=== PATIENT | male | born 1940 | race Caucasian/White ===

== ENCOUNTER 2025-05-10 22:24 | Inpatient (IN) | payer OTHER ==
[2025-05-10] MEDS ORDERED: dilTIAZem 25 MG/5 ML VIAL ONE (23:00)
[2025-05-10] MEDS ORDERED: Digoxin 0.5 MG/2 ML AMP ONE (23:00)
[2025-05-10 23:18] LABS: #Basophils 0.05 10x3/uL (0.0-0.2); #Eosinophils 0.08 10x3/uL (0.0-0.5); #Monocytes 1.34 10x3/uL (0.0-1.1); #Neutrophils 9.75 10x3/uL (1.5-8.4); %Basophils 0.4 % (0.0-2.0); %Eosinophils 0.6 % (0.0-6.0); %Lymphocytes 12.4 % (18.0-47.0); %Monocytes 10.3 % (0.0-10.0); %Neutrophils 75.3 % (40.0-75.0); Hematocrit 30.9 % (38.8-50.0); Hemoglobin 10.5 g/dL (13.5-17.5); Mean Corpuscular Hemoglobin 31.1 pg (27.0-33.0); Mean Corpuscular Volume 91.4 fL (81.2-95.1); Platelet Count 310 10x3/uL (150-450); Red Blood Cell (RBC) Count 3.38 10x6/uL (4.32-5.72); White Blood Cell (WBC) Count 12.95 10x3/uL (3.5-10.5)
[2025-05-10 23:28] LABS: INR-International Normal Ratio 1.1; PTT 27.0 sec (22.0-33.0); Prothrombin Time 11.5 sec (9.5-12.1)
[2025-05-10 23:31] LABS: Troponin I 0.024 ng/mL (< 0.028)
[2025-05-10 23:55] LABS: ALT (SGPT) 28 U/L (Less than 45); AST (SGOT) 56 U/L (11-34); Albumin 3.2 g/dL (3.1-4.5); Alkaline Phosphatase 28 U/L (40-110); Anion Gap 19 mmol/L (10-20); BUN (Urea Nitrogen) 35 mg/dL (8.4-25.7); Bilirubin, Total 0.5 mg/dL (0.3-1.2); Calc. Creatinine Clearance 0 mL/min (70-130); Calcium 9.0 mg/dL (7.8-10.44); Carbon Dioxide 20 mmol/L (23-31); Chloride 95 mmol/L (98-107); Globulin 4.0 g/dL (2.4-3.5); Glucose 189 mg/dL (83-110); Magnesium 1.5 mg/dL (1.6-2.6); Potassium 4.0 mmol/L (3.5-5.1); Sodium 130 mmol/L (136-145)
[2025-05-11] MEDS ORDERED: Magnesium 2 GM/50 ML BAG (IN WATER) ONE
[2025-05-11] MEDS ORDERED: Azithromycin 500 MG VIAL ONE (00:25)
[2025-05-11] MEDS ORDERED: Metoprolol Tartrate 5 MG (5 mL) VIAL ONE (00:25)
[2025-05-11] MEDS ORDERED: cefTRIAXone (ROCEPHIN) 2 GM VIAL ONE (00:26)
[2025-05-11] MEDS ORDERED: Guaifenesin DM 100-10/5 ML UDCUP PO PRN (00:35)
[2025-05-11] MEDS ORDERED: Calcium Carbonate 500 MG ChewTAB PO PRN (00:35)
[2025-05-11] MEDS ORDERED: Senokot S 8.6-50 MG TAB PO PRN (00:35)
[2025-05-11] MEDS ORDERED: Melatonin 3 MG TAB PO PRN (00:35)
[2025-05-11] MEDS ORDERED: Ondansetron PF 4 MG/2 ML Vial IVP PRN (00:35)
[2025-05-11] MEDS ORDERED: Dextrose 50% Abboject 50 ML SYRINGE SLOW IVP PRN (00:35)
[2025-05-11] MEDS ORDERED: Glucagon 1 MG/ML KIT IM PRN (00:35)
[2025-05-11] MEDS ORDERED: Enoxaparin 100 MG (1 mL) SYRINGE ONE (00:50)
[2025-05-11 01:43] VITALS: BMI 35.6
[2025-05-11] MEDS: Pantoprazole 40 MG VIAL IVP SCH (02:00)
[2025-05-11 03:14] LABS: Glucose, Urine (Dipstick) 50 mg/dL (Negative); Leukocyte 500 (Negative); Protein, Urine (Dipstick) 30 mg/dl (Neg-Trace); Specific Gravity, Urine 1.015 (1.005-1.030)
[2025-05-11 03:23] LABS: RBC/HPF 0-3 HPF (0-3)
[2025-05-11 03:24] LABS: Bacteria/HPF Rare-Few HPF (None Seen)
[2025-05-11 03:33] LABS: Legionella Urinary Ag Negative (Negative); Strep pneumo Urine Ag NEGATIVE (NEGATIVE)
[2025-05-11 05:06] LABS: #Basophils Less than 0.03 10x3/uL (0.0-0.2); #Eosinophils 0.08 10x3/uL (0.0-0.5); #Monocytes 1.06 10x3/uL (0.0-1.1); #Neutrophils 8.52 10x3/uL (1.5-8.4); %Basophils 0.2 % (0.0-2.0); %Eosinophils 0.7 % (0.0-6.0); %Lymphocytes 15.2 % (18.0-47.0); %Monocytes 9.2 % (0.0-10.0); %Neutrophils 73.7 % (40.0-75.0); Hematocrit 28.8 % (38.8-50.0); Hemoglobin 9.7 g/dL (13.5-17.5); Mean Corpuscular Hemoglobin 30.6 pg (27.0-33.0); Mean Corpuscular Volume 90.9 fL (81.2-95.1); Platelet Count 286 10x3/uL (150-450); Red Blood Cell (RBC) Count 3.17 10x6/uL (4.32-5.72); White Blood Cell (WBC) Count 11.56 10x3/uL (3.5-10.5)
[2025-05-11 05:25] LABS: Anion Gap 14 mmol/L (10-20); BUN (Urea Nitrogen) 35 mg/dL (8.4-25.7); Calc. Creatinine Clearance 45 mL/min (70-130); Calcium 8.5 mg/dL (7.8-10.44); Carbon Dioxide 24 mmol/L (23-31); Chloride 98 mmol/L (98-107); Glucose 149 mg/dL (83-110); Iron 38 ug/dL (65-175); Iron Binding Capacity, Total 199 mcg/dL (261-462); Magnesium 1.9 mg/dL (1.6-2.6); Potassium 4.3 mmol/L (3.5-5.1); Sodium 132 mmol/L (136-145)
[2025-05-11 05:31] LABS: Troponin I 0.017 ng/mL (< 0.028)
[2025-05-11] MEDS: Apixaban 5 MG TAB PO SCH (09:28)
[2025-05-11] MEDS: DULoxetine 30 MG CAP PO SCH (09:28)
[2025-05-11] MEDS: Ferrous Sulfate 325 MG TAB PO SCH (09:28)
[2025-05-11] MEDS: glipiZIDE XL 5 mg ER.TAB PO SCH (09:28)
[2025-05-11] MEDS: Benzonatate 100 MG CAP PO SCH (09:28)
[2025-05-11] MEDS: Pantoprazole 40 MG DR.TAB PO SCH (09:28)
[2025-05-11] MEDS: Metoprolol Succinate XL 50 MG ER.TAB PO SCH (09:28)
[2025-05-11] MEDS: Pancrelipase DR 12,000 1 CAP PO SCH (09:34)
[2025-05-12 04:23] LABS: #Basophils 0.03 10x3/uL (0.0-0.2); #Eosinophils 0.29 10x3/uL (0.0-0.5); #Monocytes 1.05 10x3/uL (0.0-1.1); #Neutrophils 7.14 10x3/uL (1.5-8.4); %Basophils 0.3 % (0.0-2.0); %Eosinophils 2.8 % (0.0-6.0); %Lymphocytes 18.4 % (18.0-47.0); %Monocytes 10.0 % (0.0-10.0); %Neutrophils 67.6 % (40.0-75.0); Hematocrit 29.9 % (38.8-50.0); Hemoglobin 9.7 g/dL (13.5-17.5); Mean Corpuscular Hemoglobin 30.2 pg (27.0-33.0); Mean Corpuscular Volume 93.1 fL (81.2-95.1); Platelet Count 284 10x3/uL (150-450); Red Blood Cell (RBC) Count 3.21 10x6/uL (4.32-5.72); White Blood Cell (WBC) Count 10.54 10x3/uL (3.5-10.5)
[2025-05-12 04:38] LABS: Anion Gap 14 mmol/L (10-20); BUN (Urea Nitrogen) 25 mg/dL (8.4-25.7); Calc. Creatinine Clearance 65 mL/min (70-130); Calcium 8.5 mg/dL (7.8-10.44); Carbon Dioxide 23 mmol/L (23-31); Chloride 104 mmol/L (98-107); Glucose 75 mg/dL (83-110); Potassium 4.1 mmol/L (3.5-5.1); Sodium 137 mmol/L (136-145)
[2025-05-12] MEDS: metFORMIN 500 MG TAB PO SCH (16:50)
[2025-05-12] MEDS: Acetaminophen 325 MG TAB PO PRN (16:50)
[2025-05-12] MEDS: Enoxaparin 40 MG (0.4 mL) SYRINGE SC SCH (21:31)
[2025-05-13] MEDS: PNEUMOC 20-VAL CONJ-DIP CRM/PF 0.5 ML SYRINGE IM ONE (08:27)
[2025-05-13] MEDS: Lisinopril 20 MG TAB PO SCH (09:44)
[2025-05-13] MEDS: Sodium Ferric Gluconate 250 MG in Sodium Chloride 0.9% 250 ML 250 ML IVPB SCH (14:58)
[2025-05-13] MEDS: Furosemide 20 MG TAB PO SCH (21:54)
[2025-05-14] MEDS ORDERED: PROPOFOL 20 ML ONE (16:42)
[2025-05-14] MEDS ORDERED: Glycopyrrolate 0.2 MG/ML 5 ML SYRINGE ONE (16:49)
[2025-05-14] MEDS: Apixaban 5 MG TAB PO SCH (21:26)
[2025-05-15 05:37] LABS: #Basophils Less than 0.03 10x3/uL (0.0-0.2); #Eosinophils 0.26 10x3/uL (0.0-0.5); #Monocytes 0.91 10x3/uL (0.0-1.1); #Neutrophils 7.74 10x3/uL (1.5-8.4); %Basophils 0.2 % (0.0-2.0); %Eosinophils 2.4 % (0.0-6.0); %Lymphocytes 15.9 % (18.0-47.0); %Monocytes 8.4 % (0.0-10.0); %Neutrophils 71.9 % (40.0-75.0); Hematocrit 28.1 % (38.8-50.0); Hemoglobin 9.0 g/dL (13.5-17.5); Mean Corpuscular Hemoglobin 30.6 pg (27.0-33.0); Mean Corpuscular Volume 95.6 fL (81.2-95.1); Platelet Count 251 10x3/uL (150-450); Red Blood Cell (RBC) Count 2.94 10x6/uL (4.32-5.72); White Blood Cell (WBC) Count 10.77 10x3/uL (3.5-10.5)
[2025-05-15 05:49] LABS: Anion Gap 10 mmol/L (10-20); BUN (Urea Nitrogen) 12 mg/dL (8.4-25.7); Calc. Creatinine Clearance 78 mL/min (70-130); Calcium 8.7 mg/dL (7.8-10.44); Carbon Dioxide 23 mmol/L (23-31); Chloride 109 mmol/L (98-107); Glucose 120 mg/dL (83-110); Magnesium 1.7 mg/dL (1.6-2.6); Potassium 4.3 mmol/L (3.5-5.1); Sodium 138 mmol/L (136-145)
[2025-05-15 11:38] VITALS: BP 132/62; TEMP 97.4
== END 2025-05-15 15:15 | DRG 871 ==
LOC: EEVIPCON 22:24 → CSHERS 22:24 → CSHTELE 05-11 00:39
PROVIDERS: ADMIT Student in an Organized Health Care Education/Training Program; ATTEND Hospitalist
PROC: 3E03329 Introduction of Other Anti-infective into Peripheral Vein, Percutaneous Approach (ICD-10-PCS; 2025-05-11)
PROC: 0DB48ZX Excision of Esophagogastric Junction, Via Natural or Artificial Opening Endoscopic, Diagnostic (ICD-10-PCS; principal; 2025-05-14)
PROC: 0DB78ZX Excision of Stomach, Pylorus, Via Natural or Artificial Opening Endoscopic, Diagnostic (ICD-10-PCS; 2025-05-14)
DX: A41.9 Sepsis, unspecified organism (principal); J18.9 Pneumonia, unspecified organism; J96.01 Acute respiratory failure with hypoxia; J69.0 Pneumonitis due to inhalation of food and vomit; N17.9 Acute kidney failure, unspecified; E87.1 Hypo-osmolality and hyponatremia; I10 Essential (primary) hypertension; E78.5 Hyperlipidemia, unspecified; N40.0 Benign prostatic hyperplasia without lower urinary tract symptoms; K21.9 Gastro-esophageal reflux disease without esophagitis; D64.9 Anemia, unspecified; G47.30 Sleep apnea, unspecified; Z98.890 Other specified postprocedural states; Z96.659 Presence of unspecified artificial knee joint; E11.40 Type 2 diabetes mellitus with diabetic neuropathy, unspecified; I48.91 Unspecified atrial fibrillation; I95.1 Orthostatic hypotension; E83.42 Hypomagnesemia; K44.9 Diaphragmatic hernia without obstruction or gangrene; R13.10 Dysphagia, unspecified; Z79.84 Long term (current) use of oral hypoglycemic drugs; Z79.899 Other long term (current) drug therapy
CPT/HCPCS: 36415; 36416; 70450; 71045; 71250; 72125; 74150; 74220; 80048; 80053; 81001; 82728; 83540; 83550; 83605; 83735; 83880; 84145; 84443; 84484; 85025; 85610; 85730; 86140; 87040; 87081; 87086; 87449; 87899; 88305; 88342; 93005; 93306; 94760; 96372; 96374; 96375; J0295; J0456; J0696; J1160; J1650; J2470; J2704; J2916; J3475; J7030; J7050

== ENCOUNTER 2025-05-22 03:42 | Observation (INO) | payer OTHER ==
[2025-05-22 03:58] LABS: #Basophils Less than 0.03 10x3/uL (0.0-0.2); #Eosinophils 0.15 10x3/uL (0.0-0.5); #Monocytes 0.88 10x3/uL (0.0-1.1); #Neutrophils 6.20 10x3/uL (1.5-8.4); %Basophils 0.2 % (0.0-2.0); %Eosinophils 1.7 % (0.0-6.0); %Lymphocytes 17.7 % (18.0-47.0); %Monocytes 9.9 % (0.0-10.0); %Neutrophils 69.9 % (40.0-75.0); Hematocrit 29.8 % (38.8-50.0); Hemoglobin 9.6 g/dL (13.5-17.5); Mean Corpuscular Hemoglobin 30.6 pg (27.0-33.0); Mean Corpuscular Volume 94.9 fL (81.2-95.1); Platelet Count 265 10x3/uL (150-450); Red Blood Cell (RBC) Count 3.14 10x6/uL (4.32-5.72); White Blood Cell (WBC) Count 8.87 10x3/uL (3.5-10.5)
[2025-05-22 04:11] LABS: INR-International Normal Ratio 1.0; PTT 26.8 sec (22.0-33.0); Prothrombin Time 11.4 sec (9.5-12.1)
[2025-05-22 04:14] LABS: ALT (SGPT) 16 U/L (Less than 45); AST (SGOT) 22 U/L (11-34); Albumin 3.0 g/dL (3.1-4.5); Alkaline Phosphatase 20 U/L (40-110); Anion Gap 16 mmol/L (10-20); BUN (Urea Nitrogen) 38 mg/dL (8.4-25.7); Bilirubin, Total 0.2 mg/dL (0.3-1.2); Calc. Creatinine Clearance 0 mL/min (70-130); Calcium 8.3 mg/dL (7.8-10.44); Carbon Dioxide 22 mmol/L (23-31); Chloride 102 mmol/L (98-107); Globulin 3.3 g/dL (2.4-3.5); Glucose 138 mg/dL (83-110); Magnesium 1.5 mg/dL (1.6-2.6); Potassium 4.3 mmol/L (3.5-5.1); Sodium 136 mmol/L (136-145)
[2025-05-22 04:20] LABS: Troponin I 0.016 ng/mL (< 0.028)
[2025-05-22] MEDS ORDERED: Magnesium 2 GM/50 ML BAG (IN WATER) ONE (08:25)
[2025-05-22] MEDS ORDERED: Iopamidol 370 76% 100 ML VIAL ONE (09:14)
[2025-05-22] MEDS ORDERED: Amoxicillin/Potassium Clav 875 MG TAB ONE (10:35)
[2025-05-22] MEDS ORDERED: Acetaminophen 325 MG TAB PO PRN (11:06)
[2025-05-22] MEDS ORDERED: Glucagon 1 MG/ML KIT IM PRN (11:06)
[2025-05-22] MEDS ORDERED: Ondansetron PF 4 MG/2 ML Vial IVP PRN (11:06)
[2025-05-22] MEDS ORDERED: Dextrose 50% Abboject 50 ML SYRINGE SLOW IVP PRN (11:06)
[2025-05-22] MEDS ORDERED: Electrolyte Replacement Protocol 1 EACH FS SCH (11:15)
[2025-05-22] MEDS ORDERED: PHOS-NAK 1 PKT PACK PO PRN (11:30)
[2025-05-22] MEDS ORDERED: Potassium Chloride 20 MEQ in Premix 1 BAG IVPB PRN (11:30)
[2025-05-22] MEDS ORDERED: diphenhydrAMINE 50 MG/ML VIAL ONE ×2 (12:45→12:54)
[2025-05-22] MEDS ORDERED: Famotidine/PF 20 mg/2ml Vial ONE ×2 (12:45→12:54)
[2025-05-22] MEDS: diphenhydrAMINE 50 MG/ML VIAL IVP SCH (12:59)
[2025-05-22] MEDS: Famotidine/PF 20 mg/2ml Vial SLOW IVP SCH (13:06)
[2025-05-22] MEDS: PNEUMOC 20-VAL CONJ-DIP CRM/PF 0.5 ML SYRINGE IM ONE (16:19)
[2025-05-22] MEDS: Pancrelipase DR 12,000 1 CAP PO SCH (20:45)
[2025-05-23 04:34] LABS: #Basophils Less than 0.03 10x3/uL (0.0-0.2); #Eosinophils Less than 0.03 10x3/uL (0.0-0.5); #Monocytes 0.05 10x3/uL (0.0-1.1); #Neutrophils 5.67 10x3/uL (1.5-8.4); %Basophils 0.2 % (0.0-2.0); %Eosinophils 0.0 % (0.0-6.0); %Lymphocytes 7.5 % (18.0-47.0); %Monocytes 0.8 % (0.0-10.0); %Neutrophils 91.0 % (40.0-75.0); Hematocrit 31.7 % (38.8-50.0); Hemoglobin 10.1 g/dL (13.5-17.5); Mean Corpuscular Hemoglobin 30.1 pg (27.0-33.0); Mean Corpuscular Volume 94.3 fL (81.2-95.1); Platelet Count 303 10x3/uL (150-450); Red Blood Cell (RBC) Count 3.36 10x6/uL (4.32-5.72); White Blood Cell (WBC) Count 6.23 10x3/uL (3.5-10.5)
[2025-05-23 04:50] LABS: ALT (SGPT) 17 U/L (Less than 45); AST (SGOT) 25 U/L (11-34); Albumin 3.1 g/dL (3.1-4.5); Alkaline Phosphatase 21 U/L (40-110); Anion Gap 15 mmol/L (10-20); BUN (Urea Nitrogen) 31 mg/dL (8.4-25.7); Bilirubin, Total 0.3 mg/dL (0.3-1.2); Calc. Creatinine Clearance 66 mL/min (70-130); Calcium 8.6 mg/dL (7.8-10.44); Carbon Dioxide 21 mmol/L (23-31); Chloride 104 mmol/L (98-107); Globulin 3.6 g/dL (2.4-3.5); Glucose 168 mg/dL (83-110); Magnesium 1.8 mg/dL (1.6-2.6); Potassium 5.2 mmol/L (3.5-5.1); Sodium 135 mmol/L (136-145)
[2025-05-23] MEDS ORDERED: Ferrous Sulfate 325 MG TAB PO SCH (08:00)
[2025-05-23] MEDS: Enoxaparin 40 MG (0.4 mL) SYRINGE SC SCH (08:36)
[2025-05-23] MEDS: DULoxetine 30 MG CAP PO SCH (08:37)
[2025-05-23] MEDS: Pantoprazole 40 MG DR.TAB PO SCH (08:38)
[2025-05-23] MEDS: Magnesium 2 GM/50 ML(in water) 2 GM in Premix 1 BAG IVPB PRN (08:53)
[2025-05-23] MEDS: Aspirin 81 mg Enteric Coated Tablet PO SCH (09:00)
[2025-05-23 10:07] LABS: Potassium 4.6 mmol/L (3.5-5.1)
[2025-05-23] MEDS: Ferrous Sulfate 325 MG TAB PO SCH (11:43)
[2025-05-23 12:03] VITALS: TEMP 97.6
[2025-05-23 14:39] VITALS: BP 145/56
== END 2025-05-23 16:01 ==
LOC: CSHERS 03:42 → CSHERHOLD 09:35 → EEVIPCON 09:35 → CSHTELE 15:41
PROVIDERS: ADMIT Internal Medicine; ATTEND Internal Medicine
DX: R55 Syncope and collapse (principal); N17.9 Acute kidney failure, unspecified; E86.1 Hypovolemia; I95.9 Hypotension, unspecified; E11.42 Type 2 diabetes mellitus with diabetic polyneuropathy; K21.9 Gastro-esophageal reflux disease without esophagitis; D63.8 Anemia in other chronic diseases classified elsewhere; Z79.84 Long term (current) use of oral hypoglycemic drugs; Z79.899 Other long term (current) drug therapy; Z79.82 Long term (current) use of aspirin
CPT/HCPCS: 36415; 36416; 70450; 71045; 71275; 72125; 74174; 80053; 83735; 84443; 84484; 85025; 85610; 85730; 93005; 96372; 96374; 96375; 96376; G0378; J1200; J1308; J1650; J1815; J2919; J3475; J7030; Q9967